=== PATIENT | female | born 1970 | race African-American/Black ===

== ENCOUNTER 2022-07-04 01:01 | Day surgery (SDC) | payer OTHER, SELFPAY ==
[2022-07-01 15:25] VITALS: BMI 27.1
--- NOTE | 2022-07-01 15:28 | PC.NURSE ---
Report to the Outpatient Waiting Room, entrance under the green pavilion located off [facility], at time 0630 on date 07/07/22. Planned Procedure Time: 0830. Time changes happen often and if your time is changed the preop area will call you the afternoon before. - You and your visitor will be asked to self-screen and do not enter if you have any COVID symptoms. - Only one visitor is requested with a max of two and NO children visitors are allowed at this time. - The patient visitor may be requested to leave or wait in car when not with patient due to distancing restrictions. - A mask is optional within the hospital at this time. Patients may have clear liquids (water, carbonated beverages, clear teas, apple juice) until 3 hours prior to surgery with a maximum of 20 ounces. - No food from midnight until time of surgery Take the following medications with a SIP of water the morning of surgery: N/A DO NOT STOP ANY OF YOUR OTHER PRESCRIPTION MEDICATIONS PRIOR TO SURGERY EXCEPT THE FOLLOWING Medications to discontinue per physician: N/A Date to take last dose: N/A Please no make-up, nail slovenian, hairspray, perfume, deodorant, or body powder the day of surgery. No jewelry (including any body piercings) or valuables the day of surgery, leave them at home. Please take a shower or bath the night before, or the morning of, surgery with an antibacterial soap. Wear comfortable, loose fitting clothing. - Jewelry must be removed prior to entering the operating room. Rings and piercings that are not removed may be cut off. - The hospital will not accept responsibility for valuables. - Please leave all valuables, including medications, at home the day of surgery. If you are going home after surgery, a licensed delivery truck driver heavy must drive you home. - NO public transportation without another adult if you receive anesthesia. - We recommend that an adult stay with you for 24 hours following discharge. - We also recommend that you do not drive, make important decision, drink alcoholic beverages, or take any drugs that were not prescribed by your health care provider for at least 24 hours after your discharge time. Follow any additional instructions given to you from your surgeon. If you or anyone in your household have experienced Covid symptoms in the past week, please notify your surgeon or the nurse liaison at the phone number below for possible testing. Telephone instructions given to PT Marvin FUNEZ and asked if any additional questions and then verbalized understanding. Patient advised to call surgeon office or pre surgery nurse liaison [phone] if any additional questions.
[2022-07-04] MEDS: ACETAMINOPHEN 500 MG TABLET 1000 MG PO (07:02)
--- NOTE | 2022-07-04 07:11 | P.PNAN_ITS ---
Anes - Initial Pre Proc Eval Procedure: Operation Date: 07/04/22 08:30 Proposed Procedures p Hysteroscopy Dilation and Curettage with Myosure - Angel Cortes MD Date/Time: 07/04/22 07:11 Surgeon: Angel Cortes MD Pre Op Diagnosis: Abnormal Uterine Bleeding Patient Data Age: 51 Gender: F Height: 1.6 m Weight: 69.4 kg Allergies Allergy/AdvReac Type Severity Reaction Status Date / Time No Known Allergies Allergy Verified 07/04/22 06:59 Home Medications Medication Instructions Recorded Confirmed Type atorvastatin 10 mg tablet 10 mg PO HS 07/01/22 07/04/22 History Patient hx anesthesia problems: none Family hx anesthesia problems: none Results Review: All pre-operative results and documents have been reviewed as part of the pre- operative evaluation. [facility] Past Medical History Medical History (Updated 07/04/22 @ 07:11 by Gene Armstrong MD) Hyperlipidemia Surgical History Surgical History (Updated 07/04/22 @ 07:11 by Gene Armstrong MD) History of section Social History Social History Smoking status: Never smoker Alcohol intake: current Drinks per week: 7 Alcohol use details: WINE NIGHTLY Substance use: never Substance use type: does not use Living arrangements: with family Spiritual care concerns: No Anes - Eval Final PreProcedure Day of Procedure 07/04/22 07:11 Patient weight: overweight Heart: regular rate and rhythm Lungs: clear to auscultation Airway: Mallampati scale class II Neurological: alert and oriented Last oral intake: >/= 8 hours ASA classification: II Emergent: no Anesthetic plan: proceed Anesthesia type and monitoring: general GIVS and standard monitoring Results Review: All pre-operative results and documents have been reviewed as part of the pre- operative evaluation. Informed Consent: The patient's anesthetic plan and its attendant risks and benefits were discussed with the patient/family/POA. Questions were solicited and answers provided to the satisfaction of the patient/family/POA.
[2022-07-04] MEDS: LACTATED RINGERS 1,000 ML 30 ML IV CONT (07:12)
[2022-07-04 07:20] VITALS: BP 147/93; PULSE 83; RESP 16; TEMP 36.6; O2SAT 100
--- NOTE | 2022-07-04 07:57 | PM.IMHP ---
H&P: HPI History of Present Illness Date/Time: 07/04/22 07:57 Chief Complaint: prolonged and heavy bleeding Narrative: 51 y/o multip presented with abnormal bleeding to office. Patient reports bleed for 2 weeks after not having a cycle for month. bleeding resolved and then patient went on a trip and had abnormal heavy bleeding with cramping last week. US at outside hospital showed possible fibroids hgb 12.0 Review of Systems Review of Systems: All systems reviewed & are unremarkable except as noted in HPI and below PMFSH Past Medical History Medical History (Updated 07/04/22 @ 08:00 by Angel Cortes MD) Abnormal uterine bleeding (AUB) Hyperlipidemia Surgical History Surgical History History of section Social History Social History Smoking status: Never smoker Alcohol intake: current Drinks per week: 7 Alcohol use details: WINE NIGHTLY Substance use: never Substance use type: does not use Living arrangements: with family Spiritual care concerns: No Meds Home Medications and Allergies Home Medications Medication Instructions Recorded Confirmed Type atorvastatin 10 mg tablet 10 mg PO HS 07/01/22 07/04/22 History Allergies Allergy/AdvReac Type Severity Reaction Status Date / Time No Known Allergies Allergy Verified 07/04/22 06:59 Vital Signs Vital Signs - 24 hr 07/04/22 07:20 Temperature 97.8 F Pulse Rate 83 Respiratory Rate 16 Blood Pressure 147/93 H Pulse Oximetry 100 Oxygen Delivery Room Air Exam Const: General: cooperative and healthy appearing Resp: Effort & Inspection: normal respiratory effort Cardio: Rate: regular rate Rhythm: regular rhythm GI: Inspection: normal to inspection : External Female Exam: normal external appearance Speculum Exam - Vagina: normal appearance of the vagina Speculum Exam - Cervix: normal appearance of the cervix Bimanual exam- vagina & uterus: enlarged Assessment and Plan Assessment and plan (1) Abnormal uterine bleeding (AUB): Code(s): N93.9 - Abnormal uterine and vaginal bleeding, unspecified Status: Acute Plan Hysteroscopy with dilation and curettage. Risk and benefits reviewed with patient and agrees to proceed with surgery.
--- NOTE | 2022-07-04 08:01 | WPDHPUPDATE1 ---
History and Physical Update Update Date/Time: 07/04/22 08:01 History and Physical has been reviewed, including an updated exam of the patient. There are NO changes in the patient's condition. Risks, benefits, and alternatives have been discussed and questions answered. Patient agrees to proceed with procedure.
--- NOTE | 2022-07-04 09:44 | P.OP_ITS ---
Procedure Note - Detailed Date of Procedure 07/04/22 Pre-op Diagnosis Abnormal Uterine Bleeding Post-op Diagnosis Other (AUB and fibroids) Procedure Performed Hysteroscopy with dilation and curetttage with myosure Surgeon Angel Cortes MD Anesthesia MAC Indications abnormal uterine bleeding Findings anterior fibroid Description of Procedure Patient was taken to the operating room and placed in lithotomy position. prepared and draped in a normal sterile. A bivalve speculum was placed in the vagina and anterior lip grasped with single tooth tenaculum. uterus sounded to 9 cm and serially dialated with herbie dilator to a 7. Hysteroscope introduced and noted an anterior fibroid. Myosure device introduced and fibroid removed undirect visualization with hysteroscope. Hysteroscope removed and a sharp cu rettage was performed in all four quadrants. all instruments were removed from the vagina and patient tolerated the procedure well sponge lap and needle counts were correct x2. Patient was taken to recovery in stable condition. Estimated Blood Loss 30 Drains No Packing No Pathology None sent Complications None Condition Stable Disposition Same day
[2022-07-04 09:50] VITALS: BP 145/102; PULSE 90; RESP 16; O2SAT 100
[2022-07-04 10:20] VITALS: BP 153/98; PULSE 63; RESP 16; O2SAT 100
[2022-07-04] MEDS: fentaNYL CITRATE INJ (*CRX) 100 MCG/2 ML VIAL 25 MCG IV PUSH ×2 (10:22→10:51)
[2022-07-04 10:50] VITALS: BP 159/94; PULSE 65; RESP 16; O2SAT 100
[2022-07-04] MEDS: oxyCODONE HCL (*CRX) 5 MG TAB IR PO (10:50)
[2022-07-04 11:20] VITALS: BP 169/105; PULSE 64; RESP 16
--- NOTE | 2022-07-04 11:41 | SUR.PHASEII ---
DR. DIALLO CALLED RE: PATIENT'S ELEVATED BP; OKAY'D TO GO HOME AND FOLLOW-UP WITH PMD.
--- NOTE | 2022-07-04 11:55 | SUR.PHASEII ---
DR. ESQUIVEL CALLED PER PATIENT REQUEST TO ASK ABOUT SURGERY. LEFT MESSAGE.
== END 2022-07-04 11:56 | disposition home or self-care (01) ==
PROVIDERS: Visit Provider Obstetrics & Gynecology
PROC: 0U5B8ZZ Destruction of Endometrium, Via Natural or Artificial Opening Endoscopic (ICD-10-PCS; CPT 58563; principal; 2022-07-04 08:30)
DX: N93.9 Abnormal uterine and vaginal bleeding, unspecified (principal); D25.9 Leiomyoma of uterus, unspecified; E78.5 Hyperlipidemia, unspecified
CPT/HCPCS: 58561; 88305; A9270; J2250; J2405; J2704; J3010; J7030; J7120

== ENCOUNTER 2022-08-15 00:57 | Day surgery (SDC) | payer OTHER, SELFPAY ==
--- NOTE | 2022-08-04 14:50 | PC.NURSE ---
Report to the Outpatient Waiting Room, entrance under the green pavilion located off [facility], at time 0600 on date 08/15/22. Planned Procedure Time: 0730. Time changes happen often and if your time is changed the preop area will call you the afternoon before. - You and your visitor will be asked to self-screen and do not enter if you have any COVID symptoms. - Only one visitor is requested with a max of two and NO children visitors are allowed at this time. - The patient visitor may be requested to leave or wait in car when not with patient due to distancing restrictions. - A mask is optional within the hospital at this time. Patients may have clear liquids (water, carbonated beverages, clear teas, apple juice) until 3 hours prior to surgery with a maximum of 20 ounces. - No food from midnight until time of surgery Take the following medications with a SIP of water the morning of surgery: PAIN PILL IF NEEDED DO NOT STOP ANY OF YOUR OTHER PRESCRIPTION MEDICATIONS PRIOR TO SURGERY EXCEPT THE FOLLOWING Medications to discontinue per physician: N/A Date to take last dose: N/A Please no make-up, nail belarusian, hairspray, perfume, deodorant, or body powder the day of surgery. No jewelry (including any body piercings) or valuables the day of surgery, leave them at home. Please take a shower or bath the night before, or the morning of, surgery with an antibacterial soap. Wear comfortable, loose fitting clothing. - Jewelry must be removed prior to entering the operating room. Rings and piercings that are not removed may be cut off. - The hospital will not accept responsibility for valuables. - Please leave all valuables, including medications, at home the day of surgery. If you are going home after surgery, a licensed buggy driver must drive you home. - NO public transportation without another adult if you receive anesthesia. - We recommend that an adult stay with you for 24 hours following discharge. - We also recommend that you do not drive, make important decision, drink alcoholic beverages, or take any drugs that were not prescribed by your health care provider for at least 24 hours after your discharge time. Follow any additional instructions given to you from your surgeon. If you or anyone in your household have experienced Covid symptoms in the past week, please notify your surgeon or the nurse liaison at the phone number below for possible testing. Telephone instructions given to PT Marvin FUNEZ and asked if any additional questions and then verbalized understanding. Patient advised to call surgeon office or pre surgery nurse liaison [phone] if any additional questions.
[2022-08-04 14:52] VITALS: BMI 27.6
[2022-08-15] MEDS: ACETAMINOPHEN 500 MG TABLET 1000 MG PO (06:16)
[2022-08-15 06:43] VITALS: BP 156/89; PULSE 73; RESP 16; TEMP 36.5; O2SAT 100
--- NOTE | 2022-08-15 07:12 | PM.HPGS ---
History of Present Illness History of Present Illness Consent: Risks, benefits, and alternatives have been discussed and questions answered. Patient agrees to proceed with procedure. Chief complaint: abnormal uterine bleeding, leiomyoma of uterus Narrative: Glenny Sethi is a 51 year old female multip presents to [facility] with complaints of heavy and irregular bleeding for several months now. s/p d and c normal endometrium with fibroid. Patient desires ablation. Review of Systems Review of Systems: All systems reviewed & are unremarkable except as noted in HPI and below PMFSH Past Medical History Medical History Abnormal uterine bleeding (AUB) Hyperlipidemia Surgical History Surgical History History of section Social History Social History Smoking status: Never smoker Alcohol intake: current Drinks per week: 7 Alcohol use details: WINE NIGHTLY Substance use: never Substance use type: does not use Living arrangements: with family Spiritual care concerns: No Meds Home Medications and Allergies Home Medications Medication Instructions Recorded Confirmed Type atorvastatin 10 mg tablet 10 mg PO HS 07/01/22 08/04/22 History tramadol 50 mg tablet 50 mg PO Q4H PRN pain #10 tabs 07/04/22 08/04/22 Rx Allergies Allergy/AdvReac Type Severity Reaction Status Date / Time No Known Allergies Allergy Verified 08/15/22 06:16 Vital Signs Vital Signs - 24 hr 08/15/22 06:43 Temperature 97.7 F Pulse Rate 73 Respiratory Rate 16 Blood Pressure 156/89 H Pulse Oximetry 100 Oxygen Delivery Room Air Exam Const: General: healthy appearing and well groomed Resp: Effort & Inspection: normal respiratory effort Cardio: Rate: regular rate Rhythm: regular rhythm GI: Inspection: normal to inspection : External Female Exam: normal external appearance Speculum Exam - Vagina: normal appearance of the vagina Bimanual exam- vagina & uterus: enlarged Assessment and Plan Assessment and plan (1) Abnormal uterine bleeding (AUB): Code(s): N93.9 - Abnormal uterine and vaginal bleeding, unspecified Status: Acute Assessment and Plan: Scheduled for hysteroscopy with Ablation. Risk and benefits reviewed in detail with patient including bleeding,infection, trauma, damage to surrounding organs, and failure rate. Patient agrees to proceed.
--- NOTE | 2022-08-15 07:17 | WPDANESEPPF ---
Anes - Initial Pre Proc Eval Procedure: Operation Date: 08/15/22 07:30 Proposed Procedures p Hysteroscopy with Liliana Endometrial Ablation - Angel Cortes MD Date/Time: 08/15/22 07:17 Surgeon: Angel Cortes MD Pre Op Diagnosis: abnormal uterine bleeding, leiomyoma of uterus Patient Data Age: 51 Gender: F Height: 1.6 m Weight: 71.9 kg Last Vital Signs Temp 36.5 C 08/15/22 06:43 Pulse 73 08/15/22 06:43 Resp 16 08/15/22 06:43 BP 156/89 H 08/15/22 06:43 Pulse Ox 100 08/15/22 06:43 O2 Del Method Room Air 08/15/22 06:43 Allergies Allergy/AdvReac Type Severity Reaction Status Date / Time No Known Allergies Allergy Verified 08/15/22 06:16 Home Medications Medication Instructions Recorded Confirmed Type atorvastatin 10 mg tablet 10 mg PO HS 07/01/22 08/04/22 History tramadol 50 mg tablet 50 mg PO Q4H PRN pain #10 tabs 07/04/22 08/04/22 Rx Patient hx anesthesia problems: none Family hx anesthesia problems: none Results Review: All pre-operative results and documents have been reviewed as part of the pre-operative evaluation. [facility] Past Medical History Medical History Abnormal uterine bleeding (AUB) Hyperlipidemia Surgical History Surgical History History of section Social History Social History Smoking status: Never smoker Alcohol intake: current Drinks per week: 7 Alcohol use details: WINE NIGHTLY Substance use: never Substance use type: does not use Living arrangements: with family Spiritual care concerns: No Anes - Eval Final PreProcedure Day of Procedure 08/15/22 07:17 Patient weight: overweight Heart: regular rate and rhythm Lungs: clear to auscultation Airway: Mallampati scale class II Neurological: alert and oriented Last oral intake: >/= 8 hours ASA classification: II Emergent: no Anesthetic plan: proceed Anesthesia type and monitoring: general GIVS and standard monitoring Results Review: All pre-operative results and documents have been reviewed as part of the pre-operative evaluation. Informed Consent: The patient's anesthetic plan and its attendant risks and benefits were discussed with the patient/family/POA. Questions were solicited and answers provided to the satisfaction of the patient/family/POA.
--- NOTE | 2022-08-15 07:17 | WPDHPUPDATE1 ---
History and Physical Update Update Date/Time: 08/15/22 07:17 History and Physical has been reviewed, including an updated exam of the patient. There are NO changes in the patient's condition. Risks, benefits, and alternatives have been discussed and questions answered. Patient agrees to proceed with procedure.
[2022-08-15] MEDS: LACTATED RINGERS 1,000 ML 30 ML IV CONT (07:24)
[2022-08-15] MEDS: LIDOCAINE HCL 1% LOCAL INJ 10 ML VIAL INFILTRATE (07:45)
[2022-08-15] MEDS: KETOROLAC 30 MG/ML VIAL (*BKC) IV PUSH (07:51)
[2022-08-15 08:00] VITALS: BP 132/89; PULSE 80; RESP 14; O2SAT 100
--- NOTE | 2022-08-15 08:02 | W.PM.PROC2 ---
Procedure Note - Detailed Date of Procedure 08/15/22 Pre-op Diagnosis abnormal uterine bleeding, leiomyoma of uterus Post-op Diagnosis Same Procedure Performed Hysteroscopy with dilation Surgeon Angel Cortes MD Anesthesia MAC and Local (10 cc total) Findings septate uterus with fibroid Description of Procedure Patient taking to OR with IV running. Placed in lithotomy position anesthesia found to be adequate. Prepared and draped in normal sterile fashion. speculum placed anterior lip of cervix grasped with tenaculum. 5 cc bilateral of 1% lidocaine with epi injected at 2 and 10. Uterus sounded to 8 cm. dilated with herbie dilators to a 6. hysteroscope introduced. uterine cavity shows septum with two sides. pictures obtain. Unable to perform sima ablation. procedure ended. instruments removed counts correct and Estimated Blood Loss 5 Complications None Condition Stable Disposition PACU
[2022-08-15 08:25] VITALS: BP 140/86; PULSE 67; RESP 20
[2022-08-15 08:55] VITALS: BP 155/90; PULSE 67; RESP 20
[2022-08-15 09:25] VITALS: BP 144/90; PULSE 65; RESP 20
--- NOTE | 2022-08-15 10:07 | SUR.PHASEII ---
0945 - pt ready for discharge. waiting for ride.
== END 2022-08-15 10:30 | disposition home or self-care (01) ==
PROVIDERS: Visit Provider Obstetrics & Gynecology
PROC: 0U5B8ZZ Destruction of Endometrium, Via Natural or Artificial Opening Endoscopic (ICD-10-PCS; CPT 58563; principal; 2022-08-15 07:30)
DX: N93.9 Abnormal uterine and vaginal bleeding, unspecified (principal); E78.5 Hyperlipidemia, unspecified
CPT/HCPCS: 58563; A9270; J1100; J1885; J2250; J2405; J2704; J3010; J7120

== ENCOUNTER 2022-10-12 09:28 | Outpatient (CLI) | payer OTHER, SELFPAY ==
--- NOTE | 2022-10-12 09:37 | ECG_ITS ---
Measurements Intervals Yoder Rate: 83 P: 62 ND: 142 QRS: 37 QRSD: 71 T: 26 QT: 388 QTc: 458 Interpretive Statements SINUS RHYTHM MINIMAL Q WAVES- INFERIOR LEADS BASELINE ARTIFACT- I, III, AVR, AVL BORDERLINE ECG NO PREVIOUS ECG AVAILABLE FOR COMPARISON Electronically Signed On 10-12-2022 12:10:20 CDT by Mat Minor D.O.
== END 2022-10-12 09:29 | disposition home or self-care (01) ==
LOC: ANHSURGERY 09:31
PROVIDERS: Visit Provider Obstetrics & Gynecology
DX: N93.9 Abnormal uterine and vaginal bleeding, unspecified (principal); E78.00 Pure hypercholesterolemia, unspecified; Z01.818 Encounter for other preprocedural examination
CPT/HCPCS: 36415; 86850; 86900; 86901; 93005

== ENCOUNTER 2022-10-13 02:32 | Day surgery (SDC) | payer OTHER, SELFPAY ==
[2022-10-11 08:38] VITALS: BMI 28.0
--- NOTE | 2022-10-11 08:42 | PC.NURSE ---
Report to the Outpatient Waiting Room, entrance under the green pavilion located off [facility], at time _1000_ on date _[id number]_. Planned Procedure Time: _1200_. Time changes happen often and if your time is changed the preop area will call you the afternoon before. - You and your visitor will be asked to self-screen and do not enter if you have any COVID symptoms. - A mask is optional within the hospital at this time. Patients may have clear liquids (water, carbonated beverages, clear teas, apple juice) until 3 hours prior to surgery with a maximum of 20 ounces. - No food from midnight until time of surgery Take the following medications with a SIP of water the morning of surgery: ___None DO NOT STOP ANY OF YOUR OTHER PRESCRIPTION MEDICATIONS PRIOR TO SURGERY ?EXCEPT THE FOLLOWING Medications to discontinue per physician ____None Date to take last dose Please no make-up, nail french, hairspray, perfume, deodorant, or body powder the day of surgery. No jewelry (including any body piercings) or valuables the day of surgery, leave them at home. Please take a shower or bath the night before, or the morning of, surgery with an antibacterial soap. Wear comfortable, loose fitting clothing. - Jewelry must be removed prior to entering the operating room. Rings and piercings that are not removed may be cut off. - The hospital will not accept responsibility for valuables. - Please leave all valuables, including medications, at home the day of surgery. If you are going home after surgery, a licensed stacker driver must drive you home. - NO public transportation without another adult if you receive anesthesia. - We recommend that an adult stay with you for 24 hours following discharge. - We also recommend that you do not drive, make important decision, drink alcoholic beverages, or take any drugs that were not prescribed by your health care provider for at least 24 hours after your discharge time. Follow any additional instructions given to you from your surgeon. If you or anyone in your household have experienced Covid symptoms in the past week, please notify your surgeon or the nurse liaison at the phone number below for possible testing. Telephone instructions given to _Patient____and asked if any additional questions and then verbalized understanding. Patient advised to call surgeon office or pre surgery nurse liaison [phone] if any additional questions.
--- NOTE | 2022-10-12 13:06 | PCCCNOTE ---
Called to Dr. Coleman's office at [phone], kirsten Montes the museum service scheduler, [place] [address] and that per [facility] there is no prior auth required. Jyoti confirms that this auth was NOT requested as IP. The surgery was requested for Outpatient/23 hour observation. The reference number from her call to [facility] is [id number].
[2022-10-13] VITALS (8 sets, daily range): BP systolic 117–180; BP diastolic 84–100; PULSE 69–102; RESP 14–18; TEMP 36.5–37; O2SAT 98–100
[2022-10-13] MEDS: LACTATED RINGERS 1,000 ML 30 ML IV CONT ×2 (11:00→15:54)
[2022-10-13] MEDS: KETOROLAC 15 MG/ML VIAL (*BKC) IV PUSH (11:00)
--- NOTE | 2022-10-13 11:14 | P.PNAN_ITS ---
Anes - Initial Pre Proc Eval Procedure: Operation Date: 10/13/22 12:00 Proposed Procedures p Abdominal Hysterectomy with Bilateral Salpingectomy - Angel Cortes MD Date/Time: 10/13/22 11:14 Surgeon: Angel Cortes MD Pre Op Diagnosis: Fibroids,Excessive Bleeding Patient Data Age: 51 Gender: F Height: 1.6 m Weight: 71.8 kg Allergies Allergy/AdvReac Type Severity Reaction Status Date / Time No Known Allergies Allergy Verified 10/11/22 08:37 Home Medications Medication Instructions Recorded Confirmed Type atorvastatin 10 mg tablet 10 mg PO HS 07/01/22 10/11/22 History tramadol 50 mg tablet 50 mg PO Q4H PRN pain #10 tabs 07/04/22 10/11/22 Rx Patient hx anesthesia problems: none Family hx anesthesia problems: none Results Review: All pre-operative results and documents have been reviewed as part of the pre- operative evaluation. [facility] Past Medical History Medical History Abnormal uterine bleeding (AUB) Hyperlipidemia Surgical History Surgical History History of section Social History Social History Smoking status: Never smoker Alcohol intake: current Drinks per week: 7 Alcohol use details: WINE NIGHTLY Substance use: never Substance use type: does not use Living arrangements: with family Spiritual care concerns: No Anes - Eval Final PreProcedure Day of Procedure 10/13/22 11:14 Patient weight: overweight Heart: regular rate and rhythm Lungs: clear to auscultation Airway: Mallampati scale class II Neurological: alert and oriented Last oral intake: >/= 8 hours ASA classification: II Emergent: no Anesthetic plan: proceed Anesthesia type and monitoring: general ETT and standard monitoring Results Review: All pre-operative results and documents have been reviewed as part of the pre- operative evaluation. Informed Consent: The patient's anesthetic plan and its attendant risks and benefits were discussed with the patient/family/POA. Questions were solicited and answers provided to the satisfaction of the patient/family/POA.
[2022-10-13] MEDS: ACETAMINOPHEN 500 MG TABLET 1000 MG PO (11:30)
--- NOTE | 2022-10-13 11:47 | PM.IMHP ---
H&P: HPI History of Present Illness Date/Time: 10/13/22 11:47 Chief Complaint: Heavy cycles Narrative: 51 y/o presents to office with complaints of heavy cycles Patient reports bleeding through colthing on a monthly basis. she had a hysteroscope with myomectomy in , a novasure ablation was attempeted however patient has a septated uterus. Review of Systems Review of Systems: negative PMFSH Past Medical History Medical History Abnormal uterine bleeding (AUB) Hyperlipidemia Surgical History Surgical History History of section Social History Social History Smoking status: Never smoker Alcohol intake: current Drinks per week: 7 Alcohol use details: WINE NIGHTLY Substance use: never Substance use type: does not use Living arrangements: with family Spiritual care concerns: No Meds Home Medications and Allergies Home Medications Medication Instructions Recorded Confirmed Type atorvastatin 10 mg tablet 10 mg PO HS 07/01/22 10/11/22 History tramadol 50 mg tablet 50 mg PO Q4H PRN pain #10 tabs 07/04/22 10/11/22 Rx Allergies Allergy/AdvReac Type Severity Reaction Status Date / Time No Known Allergies Allergy Verified 10/11/22 08:37 Exam Const: General: healthy appearing and well groomed GI: Inspection: normal to inspection : External Female Exam: normal external appearance Speculum Exam - Vagina: normal appearance of the vagina Bimanual exam- vagina & uterus: uterine mobility normal and enlarged Extrem: General: normal to inspection Assessment and Plan Assessment and plan (1) Abnormal uterine bleeding (AUB): Code(s): N93.9 - Abnormal uterine and vaginal bleeding, unspecified Status: Acute Plan Scheduled for a laparoscopic assisted vaginal hysterectomy with salpingectomy. risk and benefits reveiwed with patient including bleeding infection trauma damage to surrounding organs, and abdominal hysterectomy, Patient agreees to preceed.
--- NOTE | 2022-10-13 12:16 | WPDHPUPDATE1 ---
History and Physical Update Update Date/Time: 10/13/22 12:16 History and Physical has been reviewed, including an updated exam of the patient. There are NO changes in the patient's condition. Risks, benefits, and alternatives have been discussed and questions answered. Patient agrees to proceed with procedure.
[2022-10-13 12:26] LABS: SPREG INTERNAL CONTROL Positive; Serum Qual hCG Negative
[2022-10-13] MEDS: ceFAZolin 2 GM/D5W 50 ML 2 GM/50 ML BAG IVPB (13:02)
[2022-10-13] MEDS: LIDO 1%/EPINEPHRINE 1:100,000 20 ML VIAL 13 ML INFILTRATE (13:23)
--- NOTE | 2022-10-13 14:32 | SUR.OPER ---
urine remains yellow and clear no air in bag.
--- NOTE | 2022-10-13 15:53 | PM.OP ---
Procedure Note - Brief Procedure Note - Brief Date of procedure: 10/13/22 Fibroids,Excessive Bleeding Post-op diagnosis: Same Procedure performed: LAVH with bilateral salpingectomy Surgeon: Angel Cortes MD Findings: Large fibroid uterus Description of procedure: Laposcopic assisted vaginal hysterectomy with salpingectomy Estimated blood loss (mL): 250 IV fluids (mL): 1,000 Urine output (mL): 100 Drains: No Packing: Yes Pathology: Yes Complications: No immediate complications Condition: Stable Disposition: PACU
--- NOTE | 2022-10-13 15:56 | W.PM.PROC2 ---
Procedure Note - Detailed Date of Procedure 10/13/22 Pre-op Diagnosis Fibroids,Excessive Bleeding Post-op Diagnosis Same Procedure Performed LAVH with bilateral salpingectomy Surgeon Angel Cortes MD Anesthesia General Description of Procedure Patient was taken to the operating room where general anesthesia was induced and the patient was placed in the dorsal lithotomy position. The abdomen, perineum, and vagina were prepped and draped in the usual fashion. A lynne catheter inserted into the bladder and attached to straight drainage. After the initial preparation, the procedure commenced at the vagina. With a speculum in place to visualize the cervix, the anterior lip of the cervix were separately grasped and clamped with single tooth tenaculum. The cervix was grasped and a small KENDELL was placed on the cervix to form a manipulator. Attention was then turned to the abdomen. Following infiltration with Lidocaine, an infraumbilical incision was made and the Veress needle was gently advanced taking care to feel for the typical sensation of penetrating the peritoneum. With CO2 infiltration, an opening pressure of 7 mmHg was noted, and following this, a pneumoperitoneum of 15 mmHg was created. A 5 mm trocar was then passed through the same incision under direct visualization with laparoscope with the trocar sleeve. Visualization of the peritoneal cavity was then obtained and a brief inspection did not reveal any signs of complications from entry. Under direct observation, 5mm flank ports were then placed laterally on both the right and left sides taking care to respect anatomical landmarks and vessels. Once the placement of the ports was complete, the actual laparoscopic procedure began. Beginning on the right side and distally along the length of the fallopean tube, the mesosalpinx was exposed by lifting the tube up towards the anterior abdominal wall. The mesosalpinx was then sequentially, clamped, ligated, and cut using the harmonic working alongside the length of the tube and towards the cornua. Once the level of the cornua was reached the tube was cut, removed through the port, and attention was then turned to the other side. The same process was repeated on the left, sequentially clamping, ligating, and cutting the mesosalpinx being sure to not injure the adjacent ovarian tissue or other surrounding structures. The round ligament was then ligated and cut. Following this, the anterior leaf of the broad ligament was then taken down on the left side, dissecting down towards the peritoneal reflection at the base of the bladder and adjacent to the cervix. The same process was then repeated on the left side such that both sides met and the anterior leaflet had been appropriately skeletonized. To ensure excellent hemostasis prior to further manipulation, the pedicles of the cardinal ligament was then ligated and divided on each side using the harmonic scalpel. the uterine arteries were clamped and transected with Harmonic and Ligusure to maintain hemostasis Attention was then turned to the vaginal aspect of the surgery. The lynne catheter was removed. A weighted speculum was placed in the posterior aspect of the vagina and the vaginal manipulator was removed. The tenaculums were repositioned anteriorly and posteriorly. A circumferential incision was made at the cervical vaginal reflection using scalpel . This was undermind first anteriorly and a colpotomy made without difficulty. This was then repeated posteriorly and a similar colpotomy made. Lelia retractors were then placed into each of these incisions. Beginning first on the patient's left, the uterosacral and cardinal ligament was clamped, divided, and suture ligated. Two bites were required to reach the previous dssection margin of the left side. THe same process was then repeated on the patient's right hand side, at which point, the specimen was completely freed. Once the sutures had been placed and the pedicle
--- NOTE | 2022-10-13 17:00 | ADMGEN ---
This patient, Glenny Sethi, was admitted to OB 2nd Floor Room 289-00. Patient/family oriented to hospital policies and general routines including ID bracelet, bed and alarms, visiting hours, pain management, procedures, bathroom and other care routines, personal items, smoking policy, room service/diet, and visiting hours. Information on how to activate the Rapid Response Team has been discussed. Patient/Family are encouraged to report perceived risks to care and to ask questions if they do not understand what they are told or what they should do.
[2022-10-13] MEDS: DEXTROSE 5%/0.45% SOD CHL 1,000 ML 125 ML IV CONT (17:26)
[2022-10-13] MEDS: KETOROLAC 30 MG/ML VIAL (*BKC) IV PUSH ×2 (17:28→22:40)
[2022-10-13] MEDS: SENNA/DOCUSATE SODIUM TABLET 2 TAB PO (19:40)
[2022-10-13] MEDS: HYDROcodone/acetaminophen (*CRX) 10-325 MG TABLET 1 TAB PO ×2 (19:40→22:40)
[2022-10-13] MEDS: ONDANSETRON INJ 4 MG/2 ML VIAL IV PUSH (19:52)
[2022-10-14] MEDS: SIMETHICONE 80 MG TAB.CHEW PO ×3 (00:31→08:45)
[2022-10-14] MEDS: HYDROcodone/acetaminophen (*CRX) 10-325 MG TABLET 1 TAB PO (01:35)
[2022-10-14] MEDS: HYDROcodone/acetaminophen (*CRX) 5-325 MG TABLET 1 TAB PO ×2 (04:32→08:45)
[2022-10-14] MEDS: KETOROLAC 30 MG/ML VIAL (*BKC) IV PUSH (04:32)
[2022-10-14 04:41] LABS: Basophils Percent Auto 0.1 % (0.2-1.2); Hematocrit 27.9 % (37.0-47.0); Hemoglobin 8.7 g/dL (12.0-15.0); Immature Granulocyte Absolute 0.02 K/mm3 (0.00-0.031); Immature Granulocyte Percent A 0.2 % (0-0.5); Lymphocytes Absolute Auto 0.78 K/mm3 (0.9-3.2); Lymphocytes Percent Auto 9.2 % (18.3-44.2); Mean Corpuscular HGB Conc 31.2 g/dl (32-36); Mean Corpuscular Hemoglobin 27.4 pg (26-34); Mean Corpuscular Volume 87.7 fl (80-100); Mean Platelet Volume 9.3 fl (7.4-10.4); Monocytes Absolute Auto 0.6 K/mm3 (0.1-0.6); Monocytes Percent Auto 6.9 % (2.6-8.5); Neutrophils Absolute Auto 7.1 K/mm3 (1.3-6.7); Neutrophils Percent Auto 83.6 % (45.5-73.1); Platelet Count Result 337 k/mm3 (150-375); Red Blood Count 3.18 M/mm3 (4.2-5.4); Red Cell Distribution Width 14.1 % (11.5-14.5); White Blood Count 8.5 K/mm3 (4.5-10.0)
[2022-10-14 04:48] LABS: Anion Gap 6 mmol/L (8-16); Blood Urea Nitrogen 8 mg/dL (7-17); Calcium 7.8 mg/dL (8.4-10.2); Carbon Dioxide 25 mmol/L (22-30); Chloride 104 mmol/L (98-107); Estimated CRCL calculation 77 ml/min; Estimated Glomerular Filt Rate > 60; Glucose 124 mg/dL (65-110); Potassium 3.8 mmol/L (3.4-5.0); Sodium 135 mmol/L (137-145)
[2022-10-14 05:26] VITALS: BP 130/82; PULSE 82; RESP 12; TEMP 36.4; O2SAT 96
[2022-10-14 08:45] VITALS: BP 148/85; PULSE 81; RESP 18; TEMP 36.9; O2SAT 100
--- NOTE | 2022-10-14 08:53 | PM.GYNPNOP ---
[employer] - A/P Assessment and plan (1) Abnormal uterine bleeding (AUB): Code(s): N93.9 - Abnormal uterine and vaginal bleeding, unspecified Status: Acute Assessment and Plan: doing well. will dc home with f/u in office in 1-2 weeks. bleeding and pain precautions given in detail. Scripts for norco and zofran sent to pharmacy [facility] through office portal. Postoperative Procedures: Procedures Operation Date: 10/13/22 12:00 Actual Procedure Side Surgeon p Laparoscopic Assisted Vaginal Hysterectomy with Bilateral Salpingectomy Bilateral Angel Cortes MD Time Spent With Patient Time: Total time spent is greater than 50% in coordination of care (as documented) at patient's floor/unit and/or counseling patient: Time with patient: 15 - 25 minutes [employer]- PN:Subj Post-Op Subjective Date/time seen: 10/14/22 08:53 Interval history: doing well this am. tolerating diet no nausea, pain well controlled ambulating and voiding. Exam Const: General: comfortable Resp: Effort & Inspection: normal respiratory effort GI: Inspection: normal to inspection Other: incisions c/d/i [employer] - PN: Obj Data Vital Signs Vital Signs: Vital Signs - 24 hr 10/13/22 11:00 10/13/22 16:00 10/13/22 16:15 Temperature 97.7 F 97.9 F Pulse Rate 83 102 H 69 Respiratory Rate 16 14 15 Blood Pressure 180/93 H 157/100 H 126/84 Pulse Oximetry 100 99 98 Oxygen Delivery Room Air Room Air 10/13/22 16:30 10/13/22 16:45 10/13/22 17:00 Temperature Pulse Rate 75 74 Respiratory Rate 18 16 Blood Pressure 117/96 H 146/87 H Pulse Oximetry 100 100 Oxygen Delivery Room Air Room Air Room Air 10/13/22 17:00 10/13/22 19:06 10/13/22 22:48 Temperature 98.6 F 98.1 F 98.6 F Pulse Rate 81 94 88 Respiratory Rate 16 14 14 Blood Pressure 154/89 H 145/92 H 140/88 Pulse Oximetry 100 99 98 Oxygen Delivery 10/14/22 05:26 Temperature 97.6 F Pulse Rate 82 Respiratory Rate 12 Blood Pressure 130/82 Pulse Oximetry 96 Oxygen Delivery Intake/Output Intake/Output: Intake & Output 10/11/22 10/12/22 10/13/22 10/14/22 23:59 23:59 23:59 23:59 Intake Total 3350 1900 Output Total 1000 1800 Balance 2350 100 Meds/Results Medications: Active Medications Generic Name Dose Route Start Last Admin Trade Name Freq PRN Reason Stop Dose Admin Hydrocodone Bitart/Acetaminophen 1 tab 10/13/22 15:50 10/14/22 01:35 Hydrocodone/Acetaminophen (*Crx) 10-325 Mg Tablet PO 1 tab Q3H PRN Administration Pain Rated 6 or Greater Hydrocodone Bitart/Acetaminophen 1 tab 10/13/22 15:50 10/14/22 04:32 Hydrocodone/Acetaminophen (*Crx) 5-325 Mg Tablet PO 1 tab Q3H PRN Administration Pain Rated 5 or Less Ibuprofen 600 mg 10/13/22 15:50 Ibuprofen 600 Mg Tablet PO Q6H PRN Cramping Ketorolac Tromethamine 30 mg 10/13/22 15:50 10/14/22 04:32 Ketorolac 30 Mg/Ml Vial (*Bkc) IV PUSH 10/18/22 15:49 30 mg Q6H PRN Administration Pain Rated 4-6 Morphine Sulfate 4 mg 10/13/22 15:50 Morphine Sulfate (*Crx) 4 Mg/Ml Inj IV PUSH Q4H PRN Severe breakthrough pain Naloxone HCl 0.1 mg 10/13/22 15:50 Naloxone Hcl 0.4 Mg/Ml Vial IV PUSH Q2M PRN Respiratory rate less than 10 Ondansetron HCl 4 mg 10/13/22 15:50 10/13/22 19:52 Ondansetron Inj 4 Mg/2 Ml Vial IV PUSH 4 mg Q6H PRN Administration Nausea And Vomiting Senna/Docusate Sodium 2 tab 10/13/22 21:00 10/13/22 19:40 Senna/Docusate Sodium Tablet PO 2 tab HS MIGUELITO Administration Simethicone 80 mg 10/13/22 15:50 10/14/22 04:32 Simethicone 80 Mg Tab.Chew PO 80 mg Q2H PRN Administration Gas Labs 10/14/22 04:20 10/14/22 04:20 Labs: Laboratory Results - last 24 hr 10/13/22 10/14/22 11:48 04:20 WBC 8.5 RBC 3.18 L Hgb 8.7 L Hct 27.9 L MCV 87.7 MCH 27.4 MCHC 31.2 L RDW 14.1 Plt Count 337 MPV 9.3 Immature Gran
[2022-10-14 09:00] VITALS: PULSE 82; RESP 12; O2SAT 96
--- NOTE | 2022-10-14 12:46 | P.PNAN_ITS ---
Anes - Prog Note Post-Op Date/Time: 10/14/22 12:46 Cardiovascular status: normal Respiratory status: normal Airway patency: baseline Mental status: baseline Post-Op hydration status: normal Vital Signs: Last Vital Signs Temp 36.9 C 10/14/22 08:45 Pulse 82 10/14/22 09:00 Resp 12 10/14/22 09:00 BP 148/85 H 10/14/22 08:45 Pulse Ox 96 10/14/22 09:00 O2 Del Method Room Air 10/14/22 09:00 Pain Score (VAS): 0 I/O: Intake & Output 10/13/22 10/14/22 10/14/22 23:59 07:59 15:59 Intake Total 2300 1900 1000 Output Total 900 1800 300 Balance 1400 100 700 Laboratory Tests 10/14/22 04:20 10/14/22 04:20 10/14/22 04:20 WBC 8.5 RBC 3.18 L Hgb 8.7 L Hct 27.9 L MCV 87.7 MCH 27.4 MCHC 31.2 L RDW 14.1 Plt Count 337 MPV 9.3 Immature Gran % (Auto) 0.2 Neut % (Auto) 83.6 H Lymph % (Auto) 9.2 L [place] % (Auto) 6.9 Eos % (Auto) 0.0 Baso % (Auto) 0.1 L Lymph # (Auto) 0.78 L [place] # (Auto) 0.6 Eos # (Auto) 0.0 Baso # (Auto) 0.0 Abs Immat Gran (auto) 0.02 Absolute Neuts (auto) 7.1 H Absolute Nucleated RBC 0.0 Nucleated RBC % 0.0 Sodium 135 L Potassium 3.8 Chloride 104 Carbon Dioxide 25 Anion Gap 6 L BUN 8 Creatinine 0.60 L Estim Creat Clear Calc 77 Estimated GFR > 60 Glucose 124 H Calcium 7.8 L Post-procedural complaints: none Patient Feedback: Patient satisfied with anesthetic care.
== END 2022-10-14 11:40 | disposition home or self-care (01) ==
LOC: ANHSURGERY 12:17 → ANHOB2 17:11
PROVIDERS: Anesthesiology; Visit Provider Obstetrics & Gynecology
PROC: 0UT9FZZ Resection of Uterus, Via Natural or Artificial Opening With Percutaneous Endoscopic Assistance (ICD-10-PCS; CPT 58554; principal; 2022-10-13 12:00)
DX: N93.9 Abnormal uterine and vaginal bleeding, unspecified (principal); N80.03 Adenomyosis of the uterus; D25.1 Intramural leiomyoma of uterus; D25.2 Subserosal leiomyoma of uterus; E78.5 Hyperlipidemia, unspecified; Q51.28 Other and unspecified doubling of uterus
CPT/HCPCS: 58554; 36415; 80048; 84703; 85025; 86850; 86900; 86901; 88307; 93005; 99199; A9270; J0690; J1100; J1170; J1885; J2250; J2405; J2704; J3010; J7030; J7120